=== PATIENT | male | born 1965 | race Caucasian/White ===

== ENCOUNTER 2016-06-27 09:26 | Emergency (ER) | payer BC ==
[2016-06-27 10:10] VITALS: TEMP 97.9; BMI 30.6
[2016-06-27 11:16] LABS: AUTOMATED BASOPHIL 1.1 % (0-2); AUTOMATED EOSINOPHIL 2.9 % (0-5); AUTOMATED LYMPH 35.7 % (17-44); AUTOMATED MONOCYTE 8.6 % (3-10); AUTOMATED NEUTROPHIL 51.7 % (45-76); MPV 7.4 fL (7.4-10.4)
--- NOTE | 2016-06-27 11:23 | EDPRACDOC ---
- General Information Chief Complaint: Blood Pressure (Problems) Stated Complaint: HYPERTENSION/ HEADACHE Time Seen by Provider: 06/27/16 10:49 Information Source: Patient Mode of Arrival: Car Home Medications: Home Medications Losartan Potassium [Cozaar] 50 mg PO DAILY 06/27/16 Allergies/Adverse Reactions: Allergies Allergy/AdvReac Type Severity Reaction Status Date / Time No Known Allergies Allergy Verified 06/27/16 10:10 - History of Present Illness Onset: 3 days HPI: PT PRESENTS WITH CHEST PAIN 3 DAYS AGO THAT RESOLVED SPONTANEOUSLY. THERE WAS ASSOCIATED NAUSEA AND VOMITING AT THAT TIME. HE HAS FELT OKAY SINCE. WENT TO PCP TODAY AND HAD A CHANGE IN HIS EKG FROM PRIOR. Chest Pain Location: Reports: Substernal Pain Radiation: Reports: Back Symptoms Occur: Reports: At Rest Cardiac Risk Factors: Reports: Hypertension. Denies: Smoker, Family History, Hyperlipidemia, Diabetes, Cocaine Cardiac History of: Reports: None PE Risk Factors: Reports: None Medications within 24 Hours: Reports: Aspirin (AT PCP'S OFFICE) Pain Description: Reports: Aching Pain Severity: Moderate Associated Signs and Symptoms: Reports: SOB, Nausea, Vomiting ED Past Medical History - History Reviewed Yes Nurses notes reviewed and agree except as marked - Patient Medical History Cardiac History: Reports: Hypertension Psychological History: Denies: Depression - Social Medical History Smoking Status: Never smoker Lives With: Family Lives In: Home EDM Review of Systems - Review of Systems ROS Negative Except as Marked: Yes All systems reviewed and were negative except as marked Constitutional: negative: Fever Respiratory: Shortness of Breath Cardiovascular: Chest Pain (3 DAYS AGO) Gastrointestinal: Nausea, Vomiting (3 DAYS AGO) - Physical Exam Constitutional: Alert Oriented to: Time, Person, Place Last recorded Vital Signs: Last Vital Signs Temp 97.9 F 06/27/16 10:03 Pulse 60 06/27/16 10:51 Resp 18 06/27/16 10:03 BP 152/100 06/27/16 10:51 Pulse Ox 98 06/27/16 10:51 Oxygen Pulse Oxygen Saturation 98 O2 Device Oxygen Flow Rate Fraction of Inspired Oxygen ( FIO2) - HEENT Head: negative: Deformity, Laceration Eye Exam: negative: Conjunctival Injection, Pale Conjunctiva Oropharynx: negative: Membranes Dry Nose: negative: Congestion, Discharge Neck: negative: Limited ROM - Respiratory/Cardiovascular Respiratory: Normal - CTA. negative: Accessory Muscle Use, Diminished, Tachypnea Cardiovascular: negative: Bradycardia, Tachycardia, Irregular - GI Auscultation: Normal Palpation: Normal Tenderness: Non tender - Musculoskeletal Extremities: Radial Pulse (PALPABLE) - Integumentary Skin: Warm, Dry. negative: Rash - Neurologic Memory Impaired: Normal Motor Function: Normal Mood Description: Appropriate Thought: Coherent Perception: Normal ED Chest Pain Exam - Respiratory/Cardiovascular Chest Palpation: negative: Tender, Reproduces Pain - Action Patient received Aspirin within last 24 hours?: Yes ASA given in the ED: No - Results 06/27/16 10:25 06/27/16 10:25 - EKG EKG #1 EKG Time: 10:18 -: Yes EKG interpreted by me Rate: bpm: 51 Rhythm: SB Block: None Hypertrophy: None ST: Normal Decision Time to Discharge: 12:30 - Departure Yes I personally saw and evaluated the patient. Disposition: Home Condition: Stable Final Diagnosis: Hypertension Qualifiers: Hypertension type: essential hypertension Qualified Code(s): I10 - Essential ( primary) hypertension Instructions: Chronic Hypertension (ED) Education/Counseling Given To: Patient, Family Member Education/Counseling Given Regarding: Treatment, Prognosis, Follow Up Referrals: None,No Provider [Primary Care Provider] - Call for Appointment Prescriptions: Continue Losartan Potassium [Cozaar] 50 mg PO DAILY
[2016-06-27 11:31] LABS: PARTIAL THROMB. TIME 26.8 SEC (22-35); PT-INR 1.1
[2016-06-27 11:38] LABS: BLOOD UREA NITROGEN 19 MG/DL (9-20); CALCIUM 8.6 MG/DL (8.4-10.2); CALCULATED OSMOLALITY 270 MOs/Kg (270-290); CHLORIDE 105 mEq/L (98-107); GLUCOSE 89 mg/dL (70-99); SODIUM LEVEL 140 mEq/L (137-146); TOTAL PROTEIN 6.8 G/DL (6.3-8.2)
[2016-06-27 11:54] LABS: FREE T3 3.64 pg/mL (2.77-5.27); FREE T4 0.85 ng/dL (0.78-2.19)
[2016-06-27 12:07] LABS: hTSH 1.33 uIU/mL (0.5-4.67)
--- NOTE | 2016-06-27 12:16 | DIRPT ---
CLINICAL DATA: Weakness, chest pain EXAM: CHEST 2 VIEW COMPARISON: None. FINDINGS: Cardiomediastinal silhouette is normal in size and configuration. Lungs are clear. Lung volumes are normal. No evidence of pneumonia. No pleural effusion. No pneumothorax. Osseous and soft tissue structures about the chest are unremarkable. IMPRESSION: Normal chest x-ray. Electronically Signed By: Misbah De La Garza M.D. On: 06/27/2016 12:13
[2016-06-27 12:32] VITALS: BP 153/97; PULSE 54
== END 2016-06-27 12:30 | disposition home or self-care (01) ==
LOC: ED 09:26
DX: I10 Essential (primary) hypertension (principal)
CPT/HCPCS: 36415; 71020; 80053; 83690; 84439; 84443; 84481; 84484; 85025; 85610; 85730; 93005; 99284